=== PATIENT | female | born 1980 | race Two or more races ===

== ENCOUNTER 2021-08-02 05:40 | Day surgery (SDC) | payer OTHER | END 2021-08-02 20:20 | disposition home or self-care (01) | LOC: CIR.AMB 05:40 | PROVIDERS: ATTEND Surgery | DX: C50.911 Malignant neoplasm of unspecified site of right female breast (principal); Z17.0 Estrogen receptor positive status [ER+]; R59.0 Localized enlarged lymph nodes; Z42.1 Encounter for breast reconstruction following mastectomy; Z15.01 Genetic susceptibility to malignant neoplasm of breast; Z86.16 Personal history of COVID-19; J45.909 Unspecified asthma, uncomplicated; E66.01 Morbid (severe) obesity due to excess calories; Z20.822 Contact with and (suspected) exposure to COVID-19 ==

== ENCOUNTER 2022-02-28 05:53 | Day surgery (SDC) | payer OTHER ==
[~2022-02-28] VITALS: Ht 162.6 cm; Wt 108.9 kg
== END 2022-02-28 15:55 | disposition home or self-care (01) ==
LOC: CIR.AMB 05:53
PROVIDERS: ATTEND Plastic Surgery
DX: D05.01 Lobular carcinoma in situ of right breast (principal); Z90.13 Acquired absence of bilateral breasts and nipples; Z20.822 Contact with and (suspected) exposure to COVID-19; Z86.16 Personal history of COVID-19